=== PATIENT | male | born 1980 | race Caucasian/White ===

== ENCOUNTER 2019-05-18 10:28 | Emergency (ER) | payer BC ==
[~2019-05-18] VITALS: Ht 195.6 cm; Wt 104.5 kg
[2019-05-18 11:11] LABS: BASOPHILS % (AUTO) 0.3 % (0-1); EOSINOPHILS # (AUTO) 0.1 X10'3 (0-0.9); EOSINOPHILS % (AUTO) 1.5 % (0-6); HEMATOCRIT 49.2 % (42.0-52.0); HEMOGLOBIN 17.2 g/dl (14.0-17.9); MEAN CORPUSCULAR HEMOGLOBIN 30.7 PG (27.0-31.0); MEAN CORPUSCULAR HGB CONC 35.1 g/dL (33.0-36.5); MEAN CORPUSCULAR VOLUME 87.7 FL (78-98); MONOCYTES # (AUTO) 0.5 X10'3 (0-0.9); MONOCYTES % (AUTO) 5.3 % (2-12); NEUTROPHILS # (AUTO) 6.5 X10'3 (1.8-7.7); NEUTROPHILS % (AUTO) 70.9 % (42-75); PLATELET COUNT 232 X10'3 (140-440); RED BLOOD COUNT 5.61 X10'6 (4.70-6.10); RED CELL DISTRIBUTION WIDTH 12.4 % (11.5-14.5); WHITE BLOOD COUNT 9.2 X10'3 (4.5-11.0)
[2019-05-18 11:19] LABS: PARTIAL THROMBOPLASTIN TIME 27 SECONDS (22-32)
[2019-05-18 11:21] LABS: ALANINE AMINOTRANSFERASE 56 U/L (12-78); ALBUMIN 4.5 G/DL (3.4-5.0); ALBUMIN/GLOBULIN RATIO 1.3 (1.1-1.5); ALKALINE PHOSPHATASE 72 IU/L (46-116); ANION GAP 11 (8-16); ASPARTATE AMINO TRANSFERASE 25 U/L (10-37); BILIRUBIN,TOTAL 0.7 MG/DL (0.1-1.0); BLOOD UREA NITROGEN 13 MG/DL (7-18); CALCIUM 9.8 MG/DL (8.5-10.1); CHLORIDE 103 MMOL/L (99-107); CREATININE 0.93 MG/DL (0.60-1.10); GLUCOSE 100 MG/DL (70-104); SODIUM 140 MMOL/L (135-145); eGFR > 90 ML/MIN
[2019-05-18 11:24] LABS: POTASSIUM 4.1 MMOL/L (3.5-5.1)
[2019-05-18 11:40] LABS: LARGE PLATELETS FEW; PLATELET ESTIMATE NORMAL
[2019-05-18 12:50] VITALS: BP 130/79
== END 2019-05-18 12:53 | disposition home or self-care (01) ==
LOC: ER 10:29
DX: R07.89 Other chest pain (principal); F43.22 Adjustment disorder with anxiety; I10 Essential (primary) hypertension; Z98.890 Other specified postprocedural states; Z88.5 Allergy status to narcotic agent
CPT/HCPCS: 36415; 71045; 80053; 84484; 85025; 85610; 85730; 93005; 99284

== ENCOUNTER 2019-07-14 05:34 | Inpatient (IN) | payer OTHER ==
[2019-07-13 11:13] LABS: BASOPHILS % (AUTO) 0.2 % (0-1); EOSINOPHILS # (AUTO) 0.1 X10'3 (0-0.9); EOSINOPHILS % (AUTO) 1.8 % (0-6); LYMPHOCYTES # (AUTO) 1.8 X10'3 (1.1-4.8); LYMPHOCYTES % (AUTO) 28.2 % (21-51); MEAN CORPUSCULAR VOLUME 88.6 FL (78-98); MEAN PLATELET VOLUME 8.4 FL (7.4-10.4); MONOCYTES # (AUTO) 0.4 X10'3 (0-0.9); MONOCYTES % (AUTO) 6.5 % (2-12); NEUTROPHILS # (AUTO) 3.9 X10'3 (1.8-7.7); NEUTROPHILS % (AUTO) 63.3 % (42-75); PRE OP HEMATOCRIT 45.5 % (42.0-52.0); PRE OP HEMOGLOBIN 15.9 g/dL (14.0-17.9); PRE OP PLATELET COUNT 209 X10'3 (140-440); RED BLOOD COUNT 5.13 X10'6 (4.70-6.10); RED CELL DISTRIBUTION WIDTH 12.8 % (11.5-14.5)
[2019-07-13 11:28] LABS: ALBUMIN 4.2 G/DL (3.4-5.0); ALBUMIN/GLOBULIN RATIO 1.4 (1.1-1.5); ALKALINE PHOSPHATASE 66 IU/L (46-116); BLOOD UREA NITROGEN 13 MG/DL (7-18); BUN/CREATININE RATIO 15.9 (5.4-32.0); CALCIUM 9.2 MG/DL (8.5-10.1); CHLORIDE 104 MMOL/L (99-107); CREATININE 0.82 MG/DL (0.60-1.10); PRE OP ALT 45 U/L (30-65); PRE OP ANION GAP 4 (8-16); PRE OP AST 23 U/L (10-37); PRE OP BILIRUB, TOTAL 0.6 MG/DL (0.0-1.0); PRE OP GLUCOSE 90 MG/DL (70-104); PRE OP POTASSIUM 4.1 MMOL/L (3.4-5.1); PRE OP SODIUM 138 MMOL/L (135-145); TOTAL CARBON DIOXIDE 29.7 MMOL/L (24-32); TOTAL PROTEIN 7.2 G/DL (6.4-8.2); eGFR > 90 ML/MIN
[~2019-07-14] VITALS: Ht 165.1 cm; Wt 100.0 kg
[2019-07-14] VITALS (11 sets, daily range): BP systolic 124–144; BP diastolic 73–96
[~2019-07-14 05:34] MED LIST: AMLO10TA PO; LISI-600 PO; cefazolin/dext.iso 2gm/100ml 100 ML IV ONE; famotidine 20mg tablet PO ONE; ringers solution, lacted 1,000 ML IV SCH
[2019-07-14] MEDS ORDERED: LIDOcaine 1% (10mg/ml) 2ml vial ONE (05:55)
[2019-07-14] MEDS ORDERED: BUPIVAcaine/PF 2.5 mg/ml (0.25%) 30ml vial ONE (06:49)
[2019-07-14] MEDS ORDERED: LIDOcaine 1% 30ml preserv. free vial ONE (06:49)
[2019-07-14] MEDS ORDERED: fentaNYL/PF 50MCG/1 ML 2ML syringe ONE (07:12)
[2019-07-14] MEDS ORDERED: midazolam 2 mg/2 ml injection ONE (07:12)
[2019-07-14] MEDS ORDERED: dexamethasone sod phosphate 4mg/ml inj. ONE (07:13)
[2019-07-14] MEDS ORDERED: neostigmine methylsulfate 1 MG/ML 10ml vial ONE (07:13)
[2019-07-14] MEDS ORDERED: ondansetron/PF 4mg/2ml inj ONE (07:13)
[2019-07-14] MEDS ORDERED: propofol inj 20 ML IV ONE (07:13)
[2019-07-14] MEDS ORDERED: rocuronium 10mg/ml inj IV ONE ×2 (07:13→08:15)
[2019-07-14] MEDS ORDERED: LIDOcaine 2% (20mg/ml) 5ml vial ONE (07:13)
[2019-07-14] MEDS ORDERED: ringers solution, lacted 1,000 ML IV SCH (07:17)
[2019-07-14] MEDS ORDERED: ondansetron/PF 4mg/2ml inj IV PRN (07:20)
[2019-07-14] MEDS ORDERED: morphine 4 MG/ML inj SYRINge IV PRN ×2 (07:20)
[2019-07-14] MEDS ORDERED: fentaNYL/PF 50MCG/1 ML 2ML syringe IV PRN (07:20)
[2019-07-14] MEDS ORDERED: labetalol 20mg/4ml (5mg/ml) syringe IV PRN (07:20)
[2019-07-14] MEDS ORDERED: hydrALAZINE 20mg/ml inj. IV PRN (07:20)
[2019-07-14] MEDS ORDERED: sevoflurane 250ml liquid IH ONE (07:33)
[2019-07-14] MEDS ORDERED: glycopyrrolate 0.2mg/ml inj ONE (07:33)
[2019-07-14] MEDS ORDERED: HYDROcodone/acetaminophen 5mg/325mg tablet PO PRN ×2 (08:50)
--- NOTE | 2019-07-14 08:50 | NUR ---
Received from OR via BED , accompanied by Anesthesiologist and report given by Anesthesiolgist. PATIENT WAKING UP, DENIES PAIN, V/S WNL, NEUROVASCULAR CHECKS INTACT, DRESSING TO ABDOMEN LAP SITES WITH BANDAIDS CDI. SCD ON. 20G PIV TO AL.
[2019-07-14] MEDS ORDERED: HYDR-4383 PO (08:51)
[2019-07-14] MEDS: fentaNYL/PF 50MCG/1 ML 2ML syringe IV PRN ×2 (09:03→09:12)
--- NOTE | 2019-07-14 10:10 | NUR ---
PATIENT A&OX4, STATES PAIN WELL CONTROLLED NOW, V/S WNL, NEUROVASCULAR CHECKS INTACT, DRESSING TO ABDOMEN LAP SITES WITH BANDAIDS CDI. SCD OFF. 20G PIV TO LUE D/C. ALL DC CRITERIA HAS BEEN MET. IV TAKEN OUT WITHOUT COMPLICATIONS. ALL INSTRUCTIONS COVERED AND ALL QUESTIONS ANSWERED AND PATIENT VERBALIZED UNDERSTANDING . DRESSINGS CDI. OUT VIA WHEELCHAIR TO PERSONAL VEHICLE WHERE PATIENT WAS SECURED IN AND DRIVEN HOME BY FAMILY. SCRIPT FOR PAIN MEDS GIVEN TO FAMILY.
--- NOTE | 2019-07-14 10:10 | NUR ---
PATIENT WAS ABLE TO VOID [address] DR MORAN AWARE AND OKAY TO D/C HOME PER
== END 2019-07-14 10:30 | disposition home or self-care (01) | DRG 352 ==
LOC: PAS IN 05:34 → EDSTATUS 07:30
PROVIDERS: ADMIT Surgery; ATTEND Surgery
PROC: 8E0W4CZ Robotic Assisted Procedure of Trunk Region, Percutaneous Endoscopic Approach (ICD-10-PCS; 2019-07-14)
PROC: 0YU64JZ Supplement Left Inguinal Region with Synthetic Substitute, Percutaneous Endoscopic Approach (ICD-10-PCS; principal; 2019-07-14 07:33)
DX: K40.90 Unilateral inguinal hernia, without obstruction or gangrene, not specified as recurrent (principal); I10 Essential (primary) hypertension; Z80.0 Family history of malignant neoplasm of digestive organs; Z80.8 Family history of malignant neoplasm of other organs or systems; Z82.49 Family history of ischemic heart disease and other diseases of the circulatory system
CPT/HCPCS: Z7506; Z7508; 36415; 80053; 82948; 85025; A4215; A4618; C1781; J1100; J2001; J2250; J2405; J2704; J2710; J3010; J3490; J7120

== ENCOUNTER 2024-02-28 15:54 | Emergency (ER) | payer SELFPAY ==
[~2024-02-28] VITALS: Ht 195.6 cm; Wt 109.1 kg
[~2024-02-28 15:54] MED LIST changes: +HYDR-4383 PO; -LISI-600 PO; +LISI20TA28 PO; -cefazolin/dext.iso 2gm/100ml 100 ML IV ONE; -famotidine 20mg tablet PO ONE; -ringers solution, lacted 1,000 ML IV SCH
[2024-02-28 15:58] VITALS: BP 144/92; PULSE 68; RESP 16; TEMP 98.4; O2SAT 97
[2024-02-28 16:46] LABS: BASOPHILS % (AUTO) 0.4 % (0-1); EOSINOPHILS # (AUTO) 0.2 X10'3 (0-0.9); MEAN PLATELET VOLUME 8.8 FL (7.4-10.4); MONOCYTES # (AUTO) 0.7 X10'3 (0-0.9)
[2024-02-28 16:48] LABS: EOSINOPHILS % (AUTO) 1.9 % (0-6); HEMATOCRIT 51.3 % (42.0-52.0); HEMOGLOBIN 17.5 g/dl (14.0-17.9); LYMPHOCYTES % (AUTO) 18.1 % (21-51); MEAN CORPUSCULAR HEMOGLOBIN 30.2 PG (27.0-31.0); MEAN CORPUSCULAR HGB CONC 34.1 g/dL (33.0-36.5); MEAN CORPUSCULAR VOLUME 88.6 FL (78-98); MONOCYTES % (AUTO) 6.8 % (2-12); NEUTROPHILS % (AUTO) 72.8 % (42-75); PLATELET COUNT 240 X10'3 (140-440); RED BLOOD COUNT 5.79 X10'6 (4.70-6.10); RED CELL DISTRIBUTION WIDTH 12.9 % (11.5-14.5); WHITE BLOOD COUNT 10.9 X10'3 (4.5-11.0)
[2024-02-28 16:57] LABS: APTT 26 SECONDS (22-32); PROTHROMBIN TIME 10.6 SECONDS (9.0-12.0)
[2024-02-28 17:09] LABS: ALBUMIN 4.3 G/DL (3.4-5.0); ANION GAP 10 (8-16); BLOOD UREA NITROGEN 14 MG/DL (7-18); BUN/CREATININE RATIO 13.9 (10.0-20.0); CALCIUM 9.5 MG/DL (8.5-10.1); CHLORIDE 100 MMOL/L (99-107); CREATININE 1.01 MG/DL (0.60-1.10); FREE T4 (FREE THYROXINE) 0.97 NG/DL (0.73-1.40); GLUCOSE 78 MG/DL (70-104); POTASSIUM 4.1 MMOL/L (3.5-5.1); PRO BRAIN NATRIURETIC PEPTIDE < 30 PG/ML (0-125); SODIUM 136 MMOL/L (135-145); THYROID STIMULATING HORMONE 2.67 ulU/ml (0.34-4.50); TOTAL CARBON DIOXIDE 26.2 MMOL/L (24-32); eCRCL 120 ML/MIN; eGFR 81 ML/MIN
== END 2024-02-28 18:03 | disposition home or self-care (01) ==
LOC: ER 15:56
DX: R07.9 Chest pain, unspecified (principal); I10 Essential (primary) hypertension; R94.31 Abnormal electrocardiogram [ECG] [EKG]; Z88.8 Allergy status to other drugs, medicaments and biological substances; Z79.899 Other long term (current) drug therapy; Z98.890 Other specified postprocedural states; Z72.89 Other problems related to lifestyle
CPT/HCPCS: 71045; 80048; 83880; 84439; 84443; 84484; 85025; 85610; 85730; 93005; 99284; 99285